=== PATIENT | female | born 1990 | race Caucasian/White ===

== ENCOUNTER 2017-02-18 07:52 | Emergency (ER) | payer OTHER | END 2017-02-18 11:02 | disposition home or self-care (01) | LOC: FTE 07:52 | DX: M79.675 Pain in left toe(s) (principal); M25.512 Pain in left shoulder | CPT/HCPCS: 72040; 73630-LT; 99284-25 ==

== ENCOUNTER 2018-02-18 10:08 | Emergency (ER) | payer OTHER | END 2018-02-18 11:17 | disposition home or self-care (01) | LOC: FTE 10:08 | DX: L60.0 Ingrowing nail (principal) | CPT/HCPCS: 99283 ==

== ENCOUNTER 2018-05-03 10:53 | Emergency (ER) | payer OTHER ==
[2018-05-03] MEDS: GUAIFENESIN/DM 5ML CUP PO (11:38)
== END 2018-05-03 12:00 | disposition home or self-care (01) ==
LOC: FTE 12:00
DX: J02.0 Streptococcal pharyngitis (principal)
CPT/HCPCS: 99283; Z7502

== ENCOUNTER 2018-07-10 14:33 | Emergency (ER) | payer OTHER | END 2018-07-10 17:35 | disposition home or self-care (01) | LOC: FTE 14:33 | DX: F41.9 Anxiety disorder, unspecified (principal) | CPT/HCPCS: 81025; 99283 ==